=== PATIENT | female | born 1975 | race Caucasian/White ===

== ENCOUNTER 2021-11-17 08:03 | Day surgery (SDC) | payer MEDICAID, SELFPAY ==
[~2021-11-17] VITALS: Ht 162.6 cm; Wt 88.5 kg
[2021-11-17 08:45] LABS: HCG,QUAL RESULT NEGATIVE (NEGATIVE)
[2021-11-17] MEDS ORDERED: MEPERIDINE 100 MG INJ. 100 MG/ML VIAL ONE (08:52)
[2021-11-17] MEDS: MIDAZOLAM HCL 5 MG/5 ML VIAL ONE ×2 (09:57→10:00)
[2021-11-17 15:08] VITALS: BP_SYST 112
== END 2021-11-17 11:20 | disposition home or self-care (01) ==
LOC: SDS 08:03
PROVIDERS: ATTEND Internal Medicine Gastroenterology
DX: K62.5 Hemorrhage of anus and rectum (principal); D12.5 Benign neoplasm of sigmoid colon; D12.3 Benign neoplasm of transverse colon; K64.8 Other hemorrhoids; Z79.899 Other long term (current) drug therapy; Z20.822 Contact with and (suspected) exposure to COVID-19
CPT/HCPCS: 36415; 45385; 84703; 87426; 88305; 99152; 99153; G0378; J2175; J2250; 45384